=== PATIENT | male | born 1970 | race Caucasian/White ===

== ENCOUNTER 2019-08-13 11:39 | Inpatient (IN) ==
[~2019-08-13 11:39] MED LIST: STERILE WATER IRRIGATION IR ONE; XYLOCAINE 2 % (PLAIN) ONE
[2019-08-13] MEDS: ALCAINE or OPHTHETIC 1 DOSE AFFEYE PRN ×2 (12:10→15:40)
[2019-08-13] MEDS: VIGAMOX 0.5% OPHTH 1 DOSE AFFEYE SCH ×3 (12:10→12:20)
[2019-08-13] MEDS: CYCLOGYL 1% OPHTH 1 DOSE AFFEYE SCH ×6 (12:15→12:21)
[2019-08-13] MEDS: MYDRIACIL OPHTH 1 DOSE AFFEYE SCH ×5 (12:16→12:20)
[2019-08-13] MEDS ORDERED: AK-DILATE 10% OPHTH 1 DOSE AFFEYE PRN (12:17)
[2019-08-13] MEDS: AK-DILATE 2.5% OPHTH 1 DOSE AFFEYE SCH ×6 (12:18→12:23)
[2019-08-13] MEDS ORDERED: ALPHAGAN-P OPHTH 1 DOSE AFFEYE SCH (13:00)
[2019-08-13] MEDS ORDERED: NS 500 ML IV 500 ML IV SCH (13:00)
[2019-08-13] MEDS ORDERED: PROLENSA OPHTH 1 DOSE AFFEYE SCH (13:00)
[2019-08-13] MEDS ORDERED: PEPCID 20 MG IV PREMIX* 20 MG/50 ML BAG IV ONE (13:48)
[2019-08-13] MEDS ORDERED: BICITRA 30 ML PO ONE (13:48)
[2019-08-13] MEDS ORDERED: VERSED ONE (14:10)
[2019-08-13] MEDS ORDERED: NORCURON INJ 10 MG VIAL ONE (14:10)
[2019-08-13] MEDS ORDERED: QUELICIN (OR ANECTINE) ONE (14:10)
[2019-08-13] MEDS ORDERED: ZOFRAN INJ 4 MG VIAL ONE (14:10)
[2019-08-13] MEDS ORDERED: XYLOCAINE 2 % (PLAIN) ONE (14:10)
[2019-08-13] MEDS ORDERED: SUPRANE ONE (14:10)
[2019-08-13] MEDS ORDERED: DIPRIVAN VIAL ONE (14:10)
[2019-08-13] MEDS ORDERED: FENTANYL INJ 100 mcg ONE (15:00)
[2019-08-13] MEDS ORDERED: NS 1000 ML 1,000 ML ONE (15:11)
[2019-08-13] MEDS ORDERED: BENADRYL INJ 50 MG VIAL IVP PRN (15:22)
[2019-08-13] MEDS ORDERED: ZOFRAN INJ 4 MG VIAL IVP PRN (15:22)
[2019-08-13] MEDS ORDERED: REGLAN INJ 10 MG VIAL IVP PRN (15:22)
[2019-08-13] MEDS ORDERED: PHENERGAN INJ 25 MG IM PRN (15:22)
[2019-08-13] MEDS ORDERED: DILAUDID INJ IVP PRN (15:22)
[2019-08-13] MEDS ORDERED: VIGAMOX 0.5% OPHTH 1 DOSE RIGHTEYE PRN (15:41)
[2019-08-13] MEDS ORDERED: BSS IR PRN ×3 (15:41)
[2019-08-13] MEDS ORDERED: DUOVISC IO PRN (15:41)
[2019-08-13] MEDS ORDERED: BETADINE OPHTH SOLN 5% RIGHTEYE ONE (15:41)
[2019-08-13] MEDS ORDERED: VANCOMYCIN HCL IR PRN ×3 (15:41)
[2019-08-13] MEDS ORDERED: ADRENALINE CHL IR PRN ×3 (15:41)
[2019-08-13] MEDS ORDERED: LIDOCAINE 1% IJ ONE ×2 (15:42)
[2019-08-13] MEDS ORDERED: [UNRECOGNIZED DRUG - OTHER] IJ ONE ×2 (15:42)
[2019-08-13] MEDS: DIPRIVAN PREMIX 1 GRAM IV 1,000 MG/100 ML VIAL IV PRN ×3 (16:20→20:26)
--- NOTE | 2019-08-13 16:32 | RAD ---
HISTORYET TUE PLACEMENT, POSSIBLE ASPIRATIONSTUDYCHEST, 1 VIEWCOMPARISONNoneFINDINGSThe trachea is midline. An ET tube is in place in good position with the tip located 3.9 cm above the prisca. The cardiac silhouette is unremarkable. There is volume loss in the right upper lobe consistent with atelectasis with upper displacement of the fissure. The remainder the lungs are clear. The lungs are clear without focal infiltrate or effusion. The bony thorax is unremarkable.IMPRESSIONET tube in good position. Airspace disease right upper lobe which may be atelectasis but in our I infiltrate could not be excluded. The remainder the lungs are clearElectronically signed by: PIERRE LYONS (Aug 13, 2019 16:31:21)
[2019-08-13] MEDS ORDERED: INVANZ INJ 1 GM VIAL 1 GM in NS 100 ML IV + SPIKE MINIBAG* 100 ML IV SCH (17:00)
[2019-08-13 17:13] LABS: ABG ALLEN TEST POS; ABG BASE EXCESS 0.4 mmol/L (-2.0-2.0)
[2019-08-13 17:13] LABS: APPEARANCE,URINE CLEAR (CLEAR); BLOOD/HEMOGLOBIN,URINE NEGATIVE (NEGATIVE); COLOR,URINE STRAW (YELLOW); GLUCOSE, URINE NEGATIVE (NEGATIVE); KETONES,URINE NEGATIVE (NEGATIVE); NITRITES,URINE NEGATIVE (NEGATIVE); PROTEIN,URINE NEGATIVE (NEGATIVE)
[2019-08-13 17:14] LABS: BILIRUBIN,URINE NEGATIVE (NEGATIVE); LEUKOCYTE ESTERASE ,URINE NEGATIVE (NEGATIVE); UROBILINOGEN,URINE NORMAL (NORMAL)
[2019-08-13 17:33] LABS: BASOPHILS % (AUTO) 0.5 % (0.2-1.0); EOSINOPHILS % (AUTO) 0.8 % (0.9-2.9); HEMATOCRIT 42.1 % (42.0-54.0); HEMOGLOBIN 14.3 g/dL (13.5-18.0); LYMPHOCYTES # (AUTO) 1.3 X10^3/uL (1.3-2.9); LYMPHOCYTES % (AUTO) 20.8 % (21.0-51.0); MEAN CORPUSCULAR HEMOGLOBIN 27.3 pg (27.0-34.0); MEAN CORPUSCULAR HGB CONC 33.9 g/dL (33.0-35.0); MEAN CORPUSCULAR VOLUME 80.5 fL (80.0-100.0); MEAN PLATELET VOLUME 7.1 fL (7.4-11.0); MONOCYTES # (AUTO) 0.5 x10^3/uL (0.3-0.8); MONOCYTES % (AUTO) 7.8 % (0.0-13.0); NEUTROPHILS # (AUTO) 4.4 x10^3/uL (2.2-4.8); NEUTROPHILS % (AUTO) 70.1 % (42.0-75.0); PLATELET COUNT 271 X10^3/uL (150.0-450.0); RED BLOOD COUNT 5.23 X10^6/uL (4.7-6.0); RED CELL DISTRIBUTION WIDTH 13.7 % (11.6-16.5); WHITE BLOOD COUNT 6.3 X10^3/uL (3.6-10.0)
[2019-08-13] MEDS: XOPENEX 1.25 MG/3 ML NEBULE NEB SCH (17:35)
[2019-08-13 17:44] LABS: ALANINE AMINOTRANSFERASE 20 Units/L (12-78); ALBUMIN 3.1 g/dL (3.4-5.0); ALKALINE PHOSPHATASE 38 Units/L (46-116); ASPARTATE AMINO TRANSFERASE 14 Units/L (15-37); BLOOD UREA NITROGEN 6 mg/dL (7-18); CALCIUM 7.9 mg/dL (8.5-10.1); CARBON DIOXIDE 26.6 mmol/L (21-32); CHLORIDE 101 mmol/L (98-107); COR CA(FOR HYPOALB) 8.6 mg/dL (8.5-10.1); CREATININE 0.73 mg/dL (0.70-1.30); SODIUM 133 mmol/L (136-145); TOTAL PROTEIN 6.3 g/dL (6.4-8.2); eGFR NON BLACK RACES > 60 (>60)
[2019-08-13] MEDS: NS 1000 ML 1,000 ML IV SCH (18:07)
[2019-08-13 18:19] VITALS: BMI 26.4
[2019-08-13] MEDS: INVANZ INJ 1 GM VIAL 1 GM in NS 100 ML IV + SPIKE MINIBAG* 100 ML IV SCH (18:20)
[2019-08-13] MEDS ORDERED: NS 250 ML IV 250 ML IV ONE (18:22)
[2019-08-13 22:25] LABS: ABG BASE EXCESS 1.3 mmol/L (-2.0-2.0); ABG HCO3 25.9 mmol/L (22-26)
[2019-08-14] MEDS: DIPRIVAN PREMIX 1 GRAM IV 1,000 MG/100 ML VIAL IV PRN ×3 (00:20→08:28)
[2019-08-14] MEDS: XOPENEX 1.25 MG/3 ML NEBULE NEB SCH ×4 (00:30→18:07)
[2019-08-14 05:37] LABS: BASOPHILS # (AUTO) 0.1 X10^3/uL (0.0-0.1); BASOPHILS % (AUTO) 0.4 % (0.2-1.0); EOSINOPHILS % (AUTO) 0.2 % (0.9-2.9); HEMATOCRIT 42.4 % (42.0-54.0); HEMOGLOBIN 14.4 g/dL (13.5-18.0); LYMPHOCYTES # (AUTO) 1.7 X10^3/uL (1.3-2.9); LYMPHOCYTES % (AUTO) 8.6 % (21.0-51.0); MEAN CORPUSCULAR HEMOGLOBIN 27.3 pg (27.0-34.0); MEAN CORPUSCULAR HGB CONC 33.9 g/dL (33.0-35.0); MEAN CORPUSCULAR VOLUME 80.4 fL (80.0-100.0); MEAN PLATELET VOLUME 7.5 fL (7.4-11.0); MONOCYTES # (AUTO) 1.1 x10^3/uL (0.3-0.8); MONOCYTES % (AUTO) 5.6 % (0.0-13.0); NEUTROPHILS # (AUTO) 16.9 x10^3/uL (2.2-4.8); NEUTROPHILS % (AUTO) 85.2 % (42.0-75.0); PLATELET COUNT 272 X10^3/uL (150.0-450.0); RED BLOOD COUNT 5.28 X10^6/uL (4.7-6.0); RED CELL DISTRIBUTION WIDTH 13.8 % (11.6-16.5)
[2019-08-14 05:45] LABS: WHITE BLOOD COUNT 19.8 X10^3/uL (3.6-10.0)
[2019-08-14 06:03] LABS: ABG BASE EXCESS 3.1 mmol/L (-2.0-2.0)
[2019-08-14 06:28] LABS: ALANINE AMINOTRANSFERASE 16 Units/L (12-78); ALBUMIN 2.8 g/dL (3.4-5.0); ALKALINE PHOSPHATASE 31 Units/L (46-116); ASPARTATE AMINO TRANSFERASE 12 Units/L (15-37); BLOOD UREA NITROGEN 7 mg/dL (7-18); CALCIUM 8.3 mg/dL (8.5-10.1); CARBON DIOXIDE 25.7 mmol/L (21-32); CHLORIDE 101 mmol/L (98-107); COR CA(FOR HYPOALB) 9.3 mg/dL (8.5-10.1); CREATININE 0.72 mg/dL (0.70-1.30); SODIUM 134 mmol/L (136-145); TOTAL PROTEIN 6.1 g/dL (6.4-8.2); eGFR NON BLACK RACES > 60 (>60)
--- NOTE | 2019-08-14 08:39 | RAD ---
HISTORYFollow up respiratory failureSTUDYCHEST, 1 [id number]/10/2020FINDINGSThere is an endotracheal tube in good position. There is a nasogastric tube with its tip at the lower esophageal level. Advancement is recommended. Heart is within normal limits in size. No congestive heart failure is noted. The lungs are well inflated and now free of acute infiltrates. The right upper lobe volume loss present on the prior examination has resolved. No pleural effusions are identified. Bony thorax is unremarkable.IMPRESSIONNasogastric tube tip and side hole within the esophagus. Advancement is recommended for optimal performanceLungs now clearElectronically signed by: ELOY GOMEZ (Aug 14, 2019 08:38:29)
[2019-08-14] MEDS: INVANZ INJ 1 GM VIAL 1 GM in NS 100 ML IV + SPIKE MINIBAG* 100 ML IV SCH (09:24)
[2019-08-14] MEDS: VIGAMOX 0.5% RIGHTEYE SCH ×3 (09:26→17:50)
[2019-08-14] MEDS: PRED FORTE 1 % RIGHTEYE SCH ×4 (09:39→21:30)
[2019-08-14] MEDS: ACULAR 0.5% OPHTH 1 DOSE RIGHTEYE SCH ×4 (09:50→21:30)
--- NOTE | 2019-08-14 10:10 | RAD ---
HISTORYNG TUBE PLACEMENTSTUDYKUB two viewsCOMPARISONNoneFINDINGSThere is a nasogastric tube in good position with the tip in the distal stomach. There is no bowel distention. There is prominent fecal material in the visualized colon.IMPRESSIONSatisfactory nasogastric tube placementElectronically signed by: ANTONI BOLANOS (Aug 14, 2019 10:09:24)
[2019-08-14 12:13] LABS: ABG BASE EXCESS 4.7 mmol/L (-2.0-2.0); ABG HCO3 29.2 mmol/L (22-26)
[2019-08-14 13:13] LABS: ABG BASE EXCESS 4.1 mmol/L (-2.0-2.0); ABG HCO3 28.5 mmol/L (22-26)
--- NOTE | 2019-08-14 13:55 | DR.H&P ---
H&P - History & Physical for Day of: H&P Date: 08/13/19 - Chief Complaint Chief Complaint: ACUTE RESPIRATORY DISTRESS DUE TO ASPIRATION - History of Present Illness History of Present Illness: PT IS 48 WM ADMITTED FROM THE OR AFTER ASPIRATION COMPLICATIONS FOLLOWING RIGHT CATARACT OPERATION DUE TO FAILING TO BE NPO. PT HAD PMH OF TRAUMATIC BRAIN INJURY WITH HISTORY OF SEIZURE DISORDER AND LEFT SIDE WEAKNESS SINCE 1997. PT'S MOTHER IS HISTORIAN REPORTING NO HISTORY OF DM, HTN, OR CAD. PT ON KEPPRA AND DEPAKOTE PER DR GONZALEZ, NEUROLOGIST - Past Medical History Past Medical History: GERD, Seizures - Past Surgical History Surgical History: Ortho Surgery (RIGHT KNEE REPLACEMENT) - Family History Family Medical History: Diabetes Mellitus, Coronary Artery Disease, Hypertension - Social History Does patient currently use any type of tobacco product: Yes Have you used tobacco products in the last 12 months: Yes Type of Tobacco Use: CHEWS Does any household member use tobacco: No Alcohol Use: None Drug Use: None Prescription drug monitoring program results: PDMP reviewed and no concerns identified - Medications Home Medications: No Known Drug Allergies Allergy (Verified 08/13/19 12:17) CONTINUE taking the following medications divalproex [Depakote] 1 mg PO BID 08/13/19 [History] levetiracetam [Keppra] 1,000 mg PO BID 08/13/19 [History] paroxetine HCl [Paxil] 1 mg PO DAILY 08/13/19 [History] risperidone [Risperdal] 0.25 mg BID 08/13/19 [History] - Review of Systems Constitutional: Other (ARTIFICIAL VENTILATION) Eyes: Other (RIGHT EYE DRESSING/PATCH, S/P CATARACT) ENT: No Symptoms Reported Respiratory: Other (ASPIRATION) Cardiovascular: No Symptoms Reported Gastrointestinal: No Symptoms Reported Genitourinary: No Symptoms Reported Musculoskeletal: No Symptoms Reported Skin: No Symptoms Reported Neurological: Seizures - Physical Exam Vital Signs: Temperature 99 F Pulse Rate 92 Respiratory Rate 12 Blood Pressure 92/62 O2 Sat by Pulse Oximetry 97 Oriented: Unable to test Eyes: Blurred Vision Ear: Normal Nose: Normal Throat: Normal Respiratory: RLL Diminished, LLL Diminished Cardiovascular: Normal. negative: Murmur, Edema Auscultation: Bowel Sounds: Normal Palpation: Normal Tenderness: Normal Skin: Normal Musculoskeletal: Left, Arm, Motor Deficit Psychiatric: Anxiety Speech Pattern: Artificially Ventilated - Assessment/Plan (1) Aspiration into airway Status: Acute Plan: ADMIT, ICU VENT MANAGMENT. IV HYDRATION, BP CONTROL. CARDIAC MONITORING, NG TUBE AT LIS. SERIAL ABG, SEIZURE PRECAUTIONS, AM LABS (2) Seizure Status: Acute (3) GERD (gastroesophageal reflux disease) Status: Acute - Allergies Allergies/Adverse Reactions: Allergies Allergy/AdvReac Type Severity Reaction Status Date / Time No Known Drug Allergies Allergy Verified 08/13/19 12:17
[2019-08-14] MEDS: LOVENOX INJ 40 MG SYR SC SCH (14:55)
[2019-08-14] MEDS: NS 1000 ML 1,000 ML IV SCH (14:55)
[2019-08-14 15:00] LABS: ABG BASE EXCESS 4.4 mmol/L (-2.0-2.0); ABG HCO3 28.4 mmol/L (22-26)
[2019-08-15] MEDS: XOPENEX 1.25 MG/3 ML NEBULE NEB SCH ×3 (00:55→12:37)
[2019-08-15 06:48] LABS: BASOPHILS % (AUTO) 0.4 % (0.2-1.0); EOSINOPHILS # (AUTO) 0.1 x10^3/uL (0.0-0.2); EOSINOPHILS % (AUTO) 0.8 % (0.9-2.9); HEMATOCRIT 35.7 % (42.0-54.0); HEMOGLOBIN 12.5 g/dL (13.5-18.0); LYMPHOCYTES # (AUTO) 2.3 X10^3/uL (1.3-2.9); LYMPHOCYTES % (AUTO) 21.8 % (21.0-51.0); MEAN CORPUSCULAR HEMOGLOBIN 27.7 pg (27.0-34.0); MEAN CORPUSCULAR HGB CONC 34.9 g/dL (33.0-35.0); MEAN CORPUSCULAR VOLUME 79.2 fL (80.0-100.0); MEAN PLATELET VOLUME 7.7 fL (7.4-11.0); MONOCYTES # (AUTO) 0.8 x10^3/uL (0.3-0.8); MONOCYTES % (AUTO) 7.7 % (0.0-13.0); NEUTROPHILS # (AUTO) 7.4 x10^3/uL (2.2-4.8); NEUTROPHILS % (AUTO) 69.3 % (42.0-75.0); PLATELET COUNT 211 X10^3/uL (150.0-450.0); RED BLOOD COUNT 4.51 X10^6/uL (4.7-6.0); RED CELL DISTRIBUTION WIDTH 13.6 % (11.6-16.5); WHITE BLOOD COUNT 10.7 X10^3/uL (3.6-10.0)
[2019-08-15 07:00] LABS: ALANINE AMINOTRANSFERASE 20 Units/L (12-78); ALBUMIN 2.7 g/dL (3.4-5.0); ALKALINE PHOSPHATASE 40 Units/L (46-116); ASPARTATE AMINO TRANSFERASE 16 Units/L (15-37); BLOOD UREA NITROGEN 7 mg/dL (7-18); CALCIUM 8.1 mg/dL (8.5-10.1); CARBON DIOXIDE 25.7 mmol/L (21-32); CHLORIDE 102 mmol/L (98-107); COR CA(FOR HYPOALB) 9.1 mg/dL (8.5-10.1); COR NA(FOR HYPERGLY) 134 mmol/L (136-145); CREATININE 0.62 mg/dL (0.70-1.30); SODIUM 133 mmol/L (136-145); eGFR NON BLACK RACES > 60 (>60)
[2019-08-15] MEDS: NS 1000 ML 1,000 ML IV SCH ×3 (07:01→13:01)
--- NOTE | 2019-08-15 08:31 | RAD ---
HISTORYAspirationSTUDYCHEST, 1 [id number]/11/2020FINDINGSThe endotracheal and nasogastric tubes have been removed. The heart is within normal limits in size. The tramaine are normal. The lung barber are free of acute infiltrates. No pleural effusions are identified. Minimal bibasilar subsegmental atelectasis is present. Bony thorax is unremarkable.IMPRESSIONLungs clearElectronically signed by: ELOY GOMEZ (Aug 15, 2019 08:29:46)
[2019-08-15] MEDS ORDERED: PROTONIX INJ 40 MG VIAL IVP ONE (08:41)
[2019-08-15] MEDS ORDERED: PAXIL PO SCH (09:00)
[2019-08-15] MEDS ORDERED: DEPAKOTE D.R. TAB PO SCH (09:00)
[2019-08-15] MEDS ORDERED: KEPPRA TAB 500 MG PO SCH (09:00)
[2019-08-15] MEDS ORDERED: DEPAKOTE D.R. TAB PO ONE (09:53)
[2019-08-15] MEDS: ACULAR 0.5% OPHTH 1 DOSE RIGHTEYE SCH ×2 (10:00→13:00)
[2019-08-15] MEDS: INVANZ INJ 1 GM VIAL 1 GM in NS 100 ML IV + SPIKE MINIBAG* 100 ML IV SCH (10:03)
[2019-08-15] MEDS: LOVENOX INJ 40 MG SYR SC SCH (10:04)
[2019-08-15] MEDS: VIGAMOX 0.5% RIGHTEYE SCH ×2 (10:05→12:55)
[2019-08-15] MEDS: PRED FORTE 1 % RIGHTEYE SCH ×2 (10:15→12:50)
[2019-08-15 14:19] VITALS: BP 100/61
== END 2019-08-15 14:10 | disposition home or self-care (01) | DRG 989 ==
LOC: SURG1 11:39 → ICU 16:47
PROVIDERS: ADMIT Internal Medicine; ATTEND Internal Medicine
PROC: [UNRECOGNIZED PROCEDURE] (2019-08-13 18:50)
DX: R06.03 Acute respiratory distress; H25.811 Combined forms of age-related cataract, right eye; G40.909 Epilepsy, unspecified, not intractable, without status epilepticus; J95.88 Other intraoperative complications of respiratory system, not elsewhere classified; K21.9 Gastro-esophageal reflux disease without esophagitis
CPT/HCPCS: 36415; 36600; 71010; 71045; 74000; 74018; 80053; 80164; 81003; 82803; 85025; 87070; 87205; 94002; 94003; 94640; A4217; A4222; C9113; J0171; J0330; J1335; J1650; J2250; J2405; J2704; J3010; J3370; J3490; J7030; J7040; J7050; S0028; V2632